=== PATIENT | female | born 1940 | race Hispanic/Latino ===

== ENCOUNTER 2016-10-11 19:18 | Emergency (ER) | payer MEDICARE ==
[2016-10-11 19:34] VITALS: BMI 26.1
--- NOTE | 2016-10-11 19:48 | C.PDOC ---
Time Seen by Provider: 10/11/16 19:18 Chief Complaint (Nursing): Weakness/Neurological Deficit History Per: Patient, Family History/Exam Limitations: no limitations Onset/Duration Of Symptoms: Mins Current Symptoms Are (Timing): Still Present Disposition - Disposition Forms: [facility] (Croatian)
--- NOTE | 2016-10-11 19:51 | C.PDOC ---
History Of Present Illness pt drove to her daugther's place for dinner, around 7:20PM.. Daughter noticed that the pt stayed in her car for about 10-15 min. When she went into the house , pt seemed confused. Pt drove pt to the hospital . Seen pt in triage and code stoke called Time Seen by Provider: 10/11/16 19:18 Chief Complaint (Nursing): Weakness/Neurological Deficit History Per: Family History/Exam Limitations: no limitations Onset/Duration Of Symptoms: Mins Current Symptoms Are (Timing): Still Present Severity: Moderate Pain Scale Rating Of: 6 Recent travel outside of the [place]: No Additional History Per: Family Past Medical History Reviewed: Historical Data, Nursing Documentation, Vital Signs Vital Signs: Last Vital Signs Temp 98.3 F 10/11/16 19:47 Pulse 66 10/11/16 21:00 Resp 14 10/11/16 21:00 BP 147/84 10/11/16 21:00 Pulse Ox 99 10/11/16 21:00 Family History: States: No Known Family Hx Review Of Systems Constitutional: Negative for: Fever, Chills Eyes: Negative for: Redness ENT: Negative for: Throat Pain Cardiovascular: Negative for: Chest Pain, Palpitations Respiratory: Negative for: Shortness of Breath Gastrointestinal: Negative for: Nausea, Vomiting Genitourinary: Negative for: Dysuria Musculoskeletal: Negative for: Back Pain Skin: Negative for: Rash, Lesions Neurological: Positive for: Altered Mental Status. Negative for: Weakness Psych: Negative for: Anxiety Physical Exam - Physical Exam Appears: Non-toxic Skin: Warm, Dry Head: Atraumatic, Normacephalic Eye(s): bilateral: Normal Inspection, PERRL, EOMI Oral Mucosa: Moist Tongue: Normal Appearing Lips: Normal Appearing Neck: Trachea Midline, Supple Chest: Symmetrical Cardiovascular: Rhythm Regular Respiratory: No Rales, No Rhonchi, No Wheezing Gastrointestinal/Abdominal: Soft, No Tenderness, No Distention Back: No CVA Tenderness Extremity: No Tenderness, No Pedal Edema Extremity: Bilateral: Atraumatic, Normal Color And Temperature, Normal ROM Pulses: Left Dorsalis Pedis: Normal, Right Dorsalis Pedis: Normal Neurological/Psych: Normal Speech, Other (confused) Disoriented To: Situation Gait: Steady ED Course And Treatment - Laboratory Results Result Diagrams: 10/11/16 19:55 10/11/16 19:55 ECG: Interpreted By Me, Viewed By Me ECG Rhythm: Sinus Rhythm (48), Nonspecific Changes O2 Sat by Pulse Oximetry: 99 Pulse Ox Interpretation: Normal - Radiology CXR: Interpreted by Me, Viewed By Me CXR Interpretation: No: Infiltrates, Fracture, Pnemothorax Progress Note: 7:53PM Placed call to neurosurgery. family aware of diagnosis. spoke with dr benito- not a surgical candidate. spoke with dr dumont. will see the pt in icu. 8:27 pt feels better. less confused. pt's daughter wants to take the pt to [place]. Had placed call for transfer. Pt signed out ama and states that she will drive the pt to [place] . Pt and daugther are aware of the risks as I've explained at length, including worsening condition, permanent disability and . Encouraged to stay, but sined ama. [place] are aware. Have given the pt copies of all the blood work and scans Against Medical Advice - AMA Patient Left Against Medical Advice: The patient declines admission to the hospital and wishes to leave the Emergency Department. This action is against my medical advice. This decision was made with informed refusal. The patient was told that admission to the hospital is necessary. Explanation of the reasons why were discussed. The risks of leaving were explained to the patient and include, but are not limited to, worsening of known or currently unknown conditions, permanent disability and from undiagnosed or untreated conditions. The patient has the capacity to make this informed decision and understands my explanation of the current medical problem and risks of leaving. The patient voluntarily accepts these risks and signed an AMA form documenting our conversation. The patient was given the opportunity to ask questions and reconsider. The patient was encouraged to return to the Emergency Department at any time for further care. Critical Care Time - Critical Care Note Total Time (in mins): 30 Documented critical care: time excludes all time spent performing seperately billable procedures. NIHSS Stroke Scale - Date/Time Evaluation Performed Date Performed: 10/11/16 Time Performed: 19:18 When Was NIHSS Performed: Baseline - How Severe is the Stroke Level of Consciousness: 0=Alert LOC to Questions: 0=Both comments correct LOC to commands: 0=Obeys both correctly Best Gaze: 0=Normal Visual: 0=No visual loss Facial: 0=Normal Motor Arm - Left: 0=No drift Motor Arm - Right: 0=No drift Motor Leg - Left: 0=No drift Motor Leg - Right: 0=No drift Limb Ataxia: 0=Absent Sensory: 0=Normal Best Language: 0=No aphasia Dysarthia: 0=Normal articulation Extinction & Inattention (Neglect): 0=Normal, no object Score: 0 Disposition Counseled Patient/Family Regarding: Studies Performed, Diagnosis - Disposition Disposition: AGAINST MEDICAL ADVICE Disposition Time: 21:05 Condition: GUARDED Instructions: Hemorrhagic Stroke (DC) Forms: [facility] (Portuguese) - Clinical Impression Clinical Impression: Nontraumatic thalamic hemorrhage
--- NOTE | 2016-10-11 19:52 | CT ---
EXAM: CT Head Without Intravenous Contrast CLINICAL HISTORY: 76 years old, female; Signs and symptoms; Altered mental status/memory loss; Additional info: Code stroke TECHNIQUE: Axial computed tomography images of the head/brain without intravenous contrast. This CT exam was performed using one or more of the following dose reduction techniques: automated exposure control, adjustment of the mA and/or kV according to patient size, and/or use of iterative reconstruction technique. EXAM DATE/TIME: Exam ordered 10/11/2016 7:34 PM COMPARISON: No relevant prior studies available. FINDINGS: Brain: There is a hemorrhage noted within the left thalamus. The hemorrhage measures 1.9 x 1.3 x 1.3 cm. There is minimal surrounding edema. There is mild mass effect upon the adjacent third ventricle. No significant white matter disease. Ventricles: See above. Bones/joints: Unremarkable. No acute fracture. Soft tissues: Unremarkable. Sinuses: Unremarkable as visualized. No acute sinusitis. Mastoid air cells: Unremarkable as visualized. No mastoid effusion. IMPRESSION: 1. Acute left thalamic hemorrhage.
[2016-10-11 19:58] VITALS: TEMP 98.3
[2016-10-11 20:03] LABS: BASO # 0.1 K/uL (0.0-0.2); BASO % 1.3 % (0.0-2.0); EOS # 0.2 K/uL (0.0-0.7); EOS % 3.5 % (0.0-4.0); HEMOGLOBIN 13.4 g/dL (11.0-16.0); LYMPH # 1.7 K/uL (1.0-4.3); LYMPH % 23.9 % (20.0-40.0); MEAN CELL VOLUME 90.9 fL (81.0-99.0); MEAN CORPUSCULAR HEMOGLOBIN 30.7 pg (27.0-31.0); MEAN CORPUSCULAR HGB CONC 33.8 g/dL (33.0-37.0); MEAN PLATELET VOLUME 6.6 fL (7.2-11.7); MONO # 0.6 K/uL (0.0-0.8); MONO % 8.7 % (0.0-10.0); NEUT # 4.3 K/uL (1.8-7.0); NEUT % 62.6 % (50.0-75.0); RBC 4.37 Mil/uL (3.80-5.20); RED CELL DISTRIBUTION WIDTH 13.8 % (11.5-14.5); WHITE BLOOD COUNT 6.9 K/uL (4.8-10.8)
[2016-10-11 20:12] LABS: ALB/GLOB RATIO 1.3 (1.0-2.1); AST/SGOT 31 U/L (14-36); BLOOD UREA NITROGEN 16 mg/dL (7-17); GFR AFRICAN-AMERICAN > 60; GFR NON-AFRICAN AMERICAN > 60
[2016-10-11] MEDS ORDERED: Labetalol 25mg/5ml Syringe IVP STA (20:12)
[2016-10-11 20:13] LABS: ALT/SGPT 43 U/L (9-52); CALCIUM 9.2 mg/dl (8.6-10.4); HDL CHOLESTEROL 57 mg/dL (30-70)
[2016-10-11 20:14] LABS: PROTHROMBIN TIME 10.9 SECONDS (9.7-12.2)
[2016-10-11 20:24] LABS: LDL CHOLESTEROL 110 mg/dL (0-129)
[2016-10-11 20:35] VITALS: PULSE 66; RESP 14
[2016-10-11 21:30] VITALS: BP 147/84; O2SAT 99
--- NOTE | 2016-10-12 07:51 | RAD ---
HISTORY: cva COMPARISON: No prior. FINDINGS: LUNGS: Patchy increased markings at the left lung base suggestive for mild atelectasis and or infiltrate. Mild venous congestion. PLEURA: No significant pleural effusion identified, no pneumothorax apparent. CARDIOVASCULAR: Normal. OSSEOUS STRUCTURES: No significant abnormalities. VISUALIZED UPPER ABDOMEN: Normal. OTHER FINDINGS: None. IMPRESSION: Patchy increased markings at the left lung base suggestive for mild atelectasis and or infiltrate. Mild venous congestion.
== END 2016-10-11 21:00 | disposition left against medical advice (07) ==
LOC: C.ER 19:18
DX: I61.8 Other nontraumatic intracerebral hemorrhage (principal)

== ENCOUNTER 2017-08-24 10:31 | Emergency (ER) | payer MEDICARE, OTHER ==
[2017-08-24 10:31] VITALS: BMI 26.1
--- NOTE | 2017-08-24 11:05 | C.PDOC ---
History Of Present Illness 77 year old female presents to ED with complains of active nosebleed to right nare for 45 minutes. Patient states that nosebleed has been occurring intermittently for the past 2 days. Denies scratching her nose, trauma, or injury. Denies dizziness, headache, lightheadedness, chest pain, shortness of breath, or any other associated symptoms at this time. Patient has history of HTN and has not taken any medication today Time Seen by Provider: 08/24/17 10:43 Chief Complaint (Nursing): ENT Problem History Per: Patient History/Exam Limitations: no limitations Onset/Duration Of Symptoms: Mins, Intermittent Episodes Current Symptoms Are (Timing): Still Present Location Of Bleeding: Right Nare Associated Symptoms: Nasal Congestion. denies: Syncope, Lightheadedness, Bleeding From Gums Recent travel outside of the [place]: No Additional History Per: Patient, Family Past Medical History Reviewed: Historical Data, Nursing Documentation, Vital Signs Vital Signs: Last Vital Signs Temp 98 F 08/24/17 12:02 Pulse 78 08/24/17 12:02 Resp 18 08/24/17 12:02 BP 168/74 H 08/24/17 12:02 Pulse Ox 98 08/24/17 12:02 - Medical History PMH: HTN Family History: States: Unknown Family Hx - Social History Hx Alcohol Use: No Hx Substance Use: No - Immunization History Hx Tetanus Toxoid Vaccination: No Hx Influenza Vaccination: No Hx Pneumococcal Vaccination: No Review Of Systems Except As Marked, All Systems Reviewed And Found Negative. Constitutional: Negative for: Fever, Chills ENT: Positive for: Nose Discharge (nose bleed) Cardiovascular: Negative for: Chest Pain, Palpitations, Light Headedness Respiratory: Negative for: Cough, Shortness of Breath Neurological: Negative for: Headache, Dizziness Physical Exam - Physical Exam Appears: Non-toxic, No Acute Distress Skin: Normal Color, Warm, Dry Head: Atraumatic, Normacephalic Eye(s): bilateral: Normal Inspection Nose: Epistaxis (active nose bleeding from right nare, unable to visualize source of bleeding) Oral Mucosa: Moist, No Drooling Tongue: Normal Appearing Lips: Normal Appearing Throat: Normal, No Erythema, No Exudate Neck: Normal ROM, Supple Cardiovascular: Rhythm Regular Respiratory: Normal Breath Sounds, No Rales, No Rhonchi, No Wheezing Gastrointestinal/Abdominal: Soft, No Tenderness Extremity: Normal ROM Neurological/Psych: Oriented x3, Normal Speech ED Course And Treatment - Laboratory Results Result Diagrams: 08/24/17 11:16 O2 Sat by Pulse Oximetry: 99 (RA) Pulse Ox Interpretation: Normal Medical Decision Making Medical Decision Making: Impression: 77 year old female with active bleeding from right nostril Gauze and pressure applied to bridge of nose, ice pack applied to forehead. Ordered labs Labs reviewed with no acute findings Afrin nasal spray instilled Patient observed in ED and bleeding controlled. BP improved. Patient stable for discharge Disposition Counseled Patient/Family Regarding: Diagnosis, Need For Followup - Disposition Referrals: Sonu Hinojosa MD [Staff Provider] - Disposition: HOME/ ROUTINE Disposition Time: 11:54 Condition: STABLE Additional Instructions: Use spray daily for 3 days Follow up with ENT Instructions: Nosebleeds (DC) Forms: [facility] (Finnish) - POA Present On Arrival: None - Clinical Impression Clinical Impression: Epistaxis - PA / BOAT FINISHER / Resident Statement MD/DO has reviewed & agrees with the documentation as recorded. - Scribe Statement The provider has reviewed the documentation as recorded by the Scribe Ana Rush All medical record entries made by the Clarenceibeulalia were at my direction and personally dictated by me. I have reviewed the chart and agree that the record accurately reflects my personal performance of the history, physical exam, medical decision making, and the department course for this patient. I have also personally directed, reviewed, and agree with the discharge instructions and disposition.
[2017-08-24] MEDS ORDERED: Oxymetazoline 0.05% Nasal Spray (30 ml) NS STA (11:07)
[2017-08-24 11:21] LABS: HEMOGLOBIN 13.2 g/dL (11.0-16.0); MEAN CORPUSCULAR HEMOGLOBIN 31.1 pg (27.0-31.0); MEAN CORPUSCULAR HGB CONC 34.5 g/dL (33.0-37.0); MEAN PLATELET VOLUME 6.5 fL (7.2-11.7); RBC 4.24 Mil/uL (3.80-5.20); RED CELL DISTRIBUTION WIDTH 13.7 % (11.5-14.5); WHITE BLOOD COUNT 5.1 K/uL (4.8-10.8)
[2017-08-24 11:29] LABS: INR 1.1; PROTHROMBIN TIME 11.6 SECONDS (9.7-12.2)
[2017-08-24 12:03] VITALS: BP 168/74; PULSE 78; RESP 18; TEMP 98
[2017-08-24 13:12] VITALS: O2SAT 99
--- NOTE | 2017-08-25 16:44 | CARD ---
APPROVED REPORT EKG Measurement Heart [id number] <Conclusion> Sinus rhythm Nonspecific T wave abnormality Abnormal ECG
== END 2017-08-24 12:03 | disposition home or self-care (01) ==
LOC: C.ER 10:31
DX: R04.0 Epistaxis (principal); I10 Essential (primary) hypertension

== ENCOUNTER 2017-09-05 03:13 | Emergency (ER) | payer MEDICARE, OTHER ==
[2017-09-05 03:14] VITALS: BMI 26.1
--- NOTE | 2017-09-05 03:36 | C.PDOC ---
History Of Present Illness 77 yo female w/PMhx of TIA, HTN come in for evaluation of Right sided nasal bleeding for past 2 hours. Pt admits, intermittent Right sided nasal bleeding for past 2 weeks. Pt admits, was seen here 12 days ago when nasal bleeding resolved with pressure. Tonight, Right sided nasal bleeding started spontaneously again, " was unable to stop it with pressure". Pt admits, bleeding with " big clots". Otherwise, pt denies fever, chills, headache, dizziness, vertigo, visual changes, focal deficits, neck pain, CP, SOB, dyspnea , diaphoresis, palpitation, denies known trauma or injury to nose, denies anticoagulation therapy. Ambulate to ED,m active epistaxis noted from Right nostril. FYI: Records from previous visit 08/24/17 review, pt had CBC performed, normal H/ H. Time Seen by Provider: 09/05/17 03:22 Chief Complaint (Nursing): ENT Problem History Per: Patient Past Medical History Reviewed: Historical Data, Nursing Documentation, Vital Signs Vital Signs: Last Vital Signs Temp 98.0 F 09/05/17 03:20 Pulse 80 09/05/17 03:20 Resp 18 09/05/17 03:20 BP 158/77 H 09/05/17 03:20 Pulse Ox 99 09/05/17 05:04 - Medical History PMH: CVA, HTN Family History: States: Unknown Family Hx - Social History Hx Tobacco Use: No Hx Alcohol Use: No Hx Substance Use: No - Immunization History Hx Tetanus Toxoid Vaccination: No Hx Influenza Vaccination: No Hx Pneumococcal Vaccination: No Review Of Systems Except As Marked, All Systems Reviewed And Found Negative. Constitutional: Negative for: Fever, Chills Eyes: Negative for: Vision Change ENT: Positive for: Nose Discharge (epistaxis) Cardiovascular: Negative for: Chest Pain, Palpitations, Edema, Light Headedness Respiratory: Negative for: Cough, Shortness of Breath Gastrointestinal: Negative for: Nausea, Vomiting, Abdominal Pain, Diarrhea Genitourinary: Negative for: Incontinence Musculoskeletal: Negative for: Neck Pain, Back Pain Skin: Negative for: Bruising Neurological: Negative for: Weakness, Numbness, Altered Mental Status, Headache , Dizziness Physical Exam - Physical Exam Appears: Well, Non-toxic, No Acute Distress Skin: Normal Color, Warm, Dry, No Rash Head: Atraumatic, Normacephalic Eye(s): bilateral: PERRL Ear(s): Bilateral: Normal Nose: No Flaring, Epistaxis (Right nostril likely posterior. Left nostril large blood clot noted.), No Deformity, No Tenderness, No Septal Hematoma Oral Mucosa: Moist, No Drooling, No Trismus Tongue: Normal Appearing Lips: Normal Appearing Throat: No Erythema, No Drooling Neck: Trachea Midline, Supple Cardiovascular: Rhythm Regular, No Murmur, No JVD, Other ((-) caroti bruits B/L) Respiratory: No Decreased Breath Sounds, No Accessory Muscle Use, No Stridor, No Wheezing Gastrointestinal/Abdominal: Soft, No Tenderness Extremity: Normal ROM, No Pedal Edema, No Deformity, No Swelling Neurological/Psych: Oriented x3, Normal Speech, Normal Cognition, Normal Motor, Normal Sensation, Normal Reflexes ED Course And Treatment O2 Sat by Pulse Oximetry: 99 Pulse Ox Interpretation: Normal Progress Note: NASAL PACKING: Right nostril acute epistaxis s/p Rapid Rhino 5.5 cm. Left nostril cleaned, no source of blleding visualized. ENT: pharyng clear, no pst-nasal bloody drip noted. Lungs: CTA B/L, BS equal B/L. CVS: (+)S !S2, reg. Neuorlogicaly intact. case discussed with pt was evaluated by , no further intervention or work up recommend. Pt was OBS in ED for 2 hours and epistaxis resolved s/p nasal packing. Pt and afamily advised and ref. to f/u with ENT in 2 days for re-evaluation and further tx as need. return to ED at any time if any worsening or new changes. Disposition Counseled Patient/Family Regarding: Diagnosis, Need For Followup, Rx Given - Disposition Referrals: Montez Escoto MD [Medical Doctor] - Sonu Hinojosa MD [Staff Provider] - Disposition: HOME/ ROUTINE Disposition Time: 05:01 Condition: STABLE Additional Instructions: Keep packing for 2-3 days Take medication as prescribed Follow up with , ENT in 2-3 days for re-evaluation and packing removal. return to ED at any time if any worsening or new change.s Prescriptions: Azithromycin [Zithromax] 250 mg PO DAILY #4 tab oxyCODONE/Acetaminophen [Percocet 5/325 mg Tab] 1 ea PO QID PRN #12 tab PRN Reason: Pain, Mild (1-3) Instructions: Nosebleeds Forms: [facility] (Welsh) Print Language: MAORI - Clinical Impression Clinical Impression: Epistaxis Time Seen by Provider: 09/05/17 03:22 Chief Complaint (Nursing): ENT Problem
[2017-09-05 03:45] VITALS: TEMP 98
[2017-09-05] MEDS ORDERED: Phenylephrine 1% Nasal Spray (15 ml) ONE (03:45)
[2017-09-05] MEDS ORDERED: Bacitracin 500 Units/gm Oint Foilpak UD ONE (03:48)
[2017-09-05] MEDS ORDERED: Oxymetazoline 0.05% Nasal Spray (30 ml) NS STA (04:12)
[2017-09-05] MEDS ORDERED: Oxymetazoline 0.05% Nasal Spray (30 ml) NS ONE (04:18)
[2017-09-05] MEDS ORDERED: Bacitracin Ointment 30 GM TUBE TOP STA (04:32)
[2017-09-05 05:52] VITALS: BP 156/80; PULSE 82; RESP 20; O2SAT 97
== END 2017-09-05 05:30 | disposition home or self-care (01) ==
LOC: C.ER 03:13
DX: R04.0 Epistaxis (principal)